=== PATIENT | female | born 1945 | race American Indian/Alaskan Native ===

== ENCOUNTER 2017-08-11 09:32 | Emergency (ER) | payer MEDICARE ==
[2017-08-11 09:41] VITALS: RESP 18; TEMP 98.2
[2017-08-11] MEDS ORDERED: Bacitracin 500 Units/gm Oint Foilpak UD TOP ONE (10:28)
[2017-08-11] MEDS ORDERED: Lidocaine 1% w Epi 1:100,000 Inj INJ STA (10:32)
--- NOTE | 2017-08-11 10:36 | C.PDOC ---
History Of Present Illness Earlene Lester is a 72 year old female, with a past medical history of hypertension and arthritis, who was brought to the emergency department via EMS due to sustained injury to the left lower lip and abrasion to chin s/p fall prior to arrival. Patient reports she was walking around in the street when she tripped on the sidewalk and fell down. Patient denies head or cervical spine pain, loss of consciousness, nausea, and vomiting. Patient denies taking blood thinner medications and is not up to date with his tetanus shot. No further medical complaints. - HPI Time Seen by Provider: 08/11/17 10:20 Chief Complaint (Nursing): Trauma History Per: Patient, Family History/Exam Limitations: no limitations Onset/Duration Of Symptoms: Mins (prior to arrival), Sudden Onset Injury Occurred (Timing): Just Before Arrival Description Of Injury (Context): laceration to the left lower lip and abrasion to chin Location Of Injury: Left: Mouth (lower lip), Anterior: Face (chin) - Fall Fall:Prior To Injury: Tripped Past Medical History Reviewed: Historical Data, Nursing Documentation, Vital Signs Vital Signs: Last Vital Signs Temp 98.2 F 08/11/17 11:23 Pulse 74 08/11/17 11:23 Resp 18 08/11/17 11:23 BP 143/82 08/11/17 11:23 Pulse Ox 98 08/11/17 11:28 - Medical History PMH: Arthritis, HTN, Rheumatoid Arthritis Family History: States: Unknown Family Hx - Social History Hx Alcohol Use: No Hx Substance Use: No - Immunization History Hx Tetanus Toxoid Vaccination: No Hx Influenza Vaccination: No Hx Pneumococcal Vaccination: No Review Of Systems Except As Marked, All Systems Reviewed And Found Negative. Gastrointestinal: Negative for: Nausea, Vomiting Musculoskeletal: Negative for: Other (No head or cervical spine pain) Neurological: Negative for: Other (no loss of consciousness) Physical Exam - Physical Exam Appears: Well, Non-toxic, No Acute Distress Skin: Warm, Dry, Other (see lips exam) Head: Normacephalic, No Swelling, Abrasion (superficial abrasion to chin), Laceration (left lower lip) Eye(s): bilateral: Normal Inspection, PERRL, EOMI Ear(s): Bilateral: Normal Nose: Normal Oral Mucosa: Moist Lips: Laceration (2 cm irregular laceration to lower lip), No Lesions Teeth: Loose (left upper frontal ) Gingiva: Normal Appearing Throat: Normal Neck: Normal, Normal ROM Chest: Symmetrical Cardiovascular: Rhythm Regular Respiratory: Normal Breath Sounds Back: Normal Inspection Extremity: Bilateral: Atraumatic ED Course And Treatment O2 Sat by Pulse Oximetry: 98 (RA) Pulse Ox Interpretation: Normal Medical Decision Making Medical Decision Making: Initial Impression: Laceration to lower lip and abrasion to chin s/p fall Initial Plan: --Adacel 0.5 ml IM --Bacitracin 1 ea TOP --Tylenol 650 mg PO --Xylocaine 1% w Epi 1:100,000 Inj --Xylocaine 2% w Epi 1:100,000 Inj --reevaluation Scribe Attestation: The documentation for this encounter was entered by Williams Gomez acting as a scribe for Idalia ANDREWS All medical record entries made by the Scribe were at my direction and personally dictated by me. I have reviewed the chart and agree that the record accurately reflects my personal performance of the history, physical exam, medical decision making, and the department course for this patient. I have also personally directed, reviewed, and agree with the discharge instructions and disposition. Disposition Counseled Patient/Family Regarding: Diagnosis - Disposition Referrals: FAMILY PROVIDER,COLLEEN [Family Provider] - [facility] [Outside] Disposition: HOME/ ROUTINE Disposition Time: 11:16 Condition: STABLE Additional Instructions: WOUND CHECK IN 2 DAYS. SUTURE REMOVAL OF LOWER LIP IN 5 DAYS. YOU MAY USE AQUAPHOR OINTMENT TO HEALING LACERATION. ICE FOR 5-10 MIN EVERY 2 HOURS FOR 2 DAYS. LEFT FRONTAL TOOTH IS LOOSE, TO BE EVALUATED BY DENTIST LARISA. PLEASE AVOID BITING ON SOLID FOODS. IF ANY CONCERNING SYMPTOMS DEVELOP RETURN TO ED. Prescriptions: Acetaminophen [Tylenol Extra Strength] 500 mg PO QID PRN #15 tablet PRN Reason: Pain, Moderate (4-7) Instructions: Abrasion (ED), Facial Laceration (ED) Forms: [facility] ([place]) - Clinical Impression Clinical Impression: Abrasion of chin, Laceration of lip
[2017-08-11] MEDS ORDERED: Bacitracin 500 Units/gm Oint Foilpak UD ONE (10:37)
[2017-08-11] MEDS ORDERED: Lidocaine 2% w Epi 1:100,000 Inj IJ ONE (10:45)
[2017-08-11 11:23] VITALS: BP 143/82; PULSE 74
[2017-08-11 11:28] VITALS: O2SAT 98
== END 2017-08-11 11:45 | disposition home or self-care (01) ==
LOC: C.ER 09:32
DX: S01.511A Laceration without foreign body of lip, initial encounter (principal); W01.0XXA Fall on same level from slipping, tripping and stumbling without subsequent striking against object, initial encounter; Y93.01 Activity, walking, marching and hiking; Y92.480 Sidewalk as the place of occurrence of the external cause; Z23 Encounter for immunization

== ENCOUNTER 2019-03-13 09:42 | Outpatient (CLI) | payer MEDICARE | END 2019-03-13 09:43 | disposition home or self-care (01) | LOC: C.LAB 09:42 ==